=== PATIENT | male | born 1975 | race Caucasian/White ===

== ENCOUNTER → 2019-07-03 08:35 | Outpatient (CLI) | payer OTHER, SELFPAY ==
--- NOTE | ~2019-07-03 | MR_ITS ---
EXAMINATION: MR brain/brain stem wo/w con DATE: 07/03/2019 09:28 INDICATION: Headache. TECHNIQUE: Magnetic resonance imaging (MRI) of the brain and brainstem was performed without and with 19 mm MultiHance intravenous contrast. Sequences included sagittal and axial T1-weighted FSE, axial diffusion-weighted FS EPI, axial T2*-weighted GRE, axial T2-weighted FLAIR Propeller, and axial T2-we ighted Propeller. Postcontrast sequences included axial and coronal T1-weighted FSE. Apparent diffusi on coefficient (ADC) maps were created. COMPARISON: None. FINDINGS: There is no intracranial hemorrhage, acute infarction, or abnormal intracranial mass lesion . The ventricles are normal in size. The paranasal sinuses are clear. The orbits are normal. The mast oid air cells are normal. IMPRESSION: 1. Normal brain. Reviewed, dictated and finalized at location [facility]. ANCE TECHNICIAN IMPRESSION: 1. Normal brain.
[2019-07-03 09:05] LABS: Blood Urea Nitrogen 17 mg/dL (8-26); Estimated Glomerular Filt Rate > 60
== END ==
PROVIDERS: Visit Provider Internal Medicine
DX: R51 Headache (principal)
CPT/HCPCS: 70553; A9577

== ENCOUNTER 2019-12-08 19:40 | Emergency (ER) | payer OTHER, SELFPAY ==
[2019-12-08 19:48] VITALS: BP 128/86; PULSE 100; RESP 16; TEMP 36.7; O2SAT 99
[2019-12-08] MEDS: TETANUS,DIPHTHERIA,AC PERTUSSIS ADULT (0.5 ML) BOOSTRIX IM (19:49)
--- NOTE | 2019-12-08 19:53 | ED.SKABFB ---
HPI - Skin/Abscess/Foreign Bdy General Chief complaint: Wound/Laceration Stated complaint: injury right ankle Time Seen by Provider: 12/08/19 19:47 Source: patient and RN notes reviewed Mode of arrival: ambulatory Limitations: no limitations History of Present Illness HPI narrative: Patient presents today complaining of puncture wound to the right lower calf. He was using this sharp pick at home to scrape grease and punctured his leg. He is not up-to-date on his tetanus vaccine. He has been taking Advil with full relief. Currently pain free. MD complaint: laceration Related Data Allergies Allergy/AdvReac Type Severity Reaction Status Date / Time No Known Allergies Allergy Verified 12/08/19 19:48 Review of Systems Review of Systems: Narrative: CONSTITUTIONAL: Denies body aches, fever, chills, or sweats. EYES: Denies visual changes, redness, or discharge. ENT: Denies rhinorrhea, congestion, sore throat, or otalgia. CARDIOVASCULAR: Denies chest pain, palpitations, or edema. RESPIRATORY: Denies cough or dyspnea. GASTROINTESTINAL: Denies abdominal pain, nausea, vomiting, or diarrhea. GENITOURINARY: Denies dysuria or hematuria. SKIN: Denies rash, itching. + Puncture wound right lower leg MUSCULOSKELETAL: Denies back pain, joint pain, or myalgia. NEUROLOGIC: Denies headache, numbness, tingling, or weakness. PSYCH: Denies depression or anxiety. [facility], [facility] Past Medical History Medical History (Updated 12/08/19 @ 19:58 by Audrey Stephens, [facility], ) Broken wrist Left. Broken knuckle Collapsed lung GERD (gastroesophageal reflux disease) Migraine headache Family History Family History (Updated 06/19/19 @ 15:23 by Mayela Gonzalez CMA) Father Hypertension Family history of diabetes mellitus in first degree relative Mother Hypertension High cholesterol Aneurysm Sibling High cholesterol COPD (chronic obstructive pulmonary disease) Social History Social History (Updated 06/19/19 @ 15:23 by Mayela Gonzalez CMA) Smoking status: Never smoker Alcohol intake: current Gender identity (if verbalized by the patient): Male Comments At time of signature, I have reviewed and agree with nursing past medical, surgical, social and family history unless otherwise noted. Please see nursing chart for further information. There is no relevant family history pertinent to the presenting complaint Exam Narrative: Exam Narrative: GENERAL: Well-appearing, well-nourished, and in no acute distress. HEAD: Normocephalic, atraumatic. EYES: EOMI. No redness or drainage. Conjunctivae normal. ENT: Mucous membranes pink and moist. NECK: Normal AROM. CHEST: No respiratory distress. EXTREMITIES: Right lower le x 4 centimeter area of mild erythema and edema to the posterior lower leg with puncture wound in the center. Tender to palpation. No fluctuance or induration. No red streaking noted. Distal sensation intact. Capillary refill normal. Full range of motion of the ankle. No drainage noted. SKIN: Warm, dry, no rash. Capillary refill normal. Normal skin turgor. NEURO: No focal deficits. Alert and oriented x3. Gait steady. PSYCH: Normal affect. No signs of depression or anxiety. Course Vital Signs Vital signs: Vital Signs Temperature 98.0 F 12/08/19 19:48 Pulse Rate 100 12/08/19 19:48 Respiratory Rate 16 12/08/19 19:48 Blood Pressure 128/86 12/08/19 19:48 Pulse Oximetry 99 12/08/19 19:48 Temperature 98.0 F 12/08/19 19:48 Pulse Rate 100 12/08/19 19:48 Respiratory Rate 16 12/08/19 19:48 Blood Pressure 128/86 12/08/19 19:48 Pulse Oximetry 99 12/08/19 19:48 Reviewed. Pt has been instructed to follow up with his PCP regarding his elevated blood pressure today. MDM - Skin/Abscess/Foreign Bdy Differential Diagnosis Differential diagnosis: Likely abscess of skin or subcutaneous tissue, cellulitis and other (Laceration, skin avulsion) Critical Care Time Critical Care Time
== END 2019-12-08 20:09 | disposition home or self-care (01) ==
PROVIDERS: Emergency Provider Nurse Practitioner; PCP Internal Medicine
DX: L03.115 Cellulitis of right lower limb (principal); S81.831A Puncture wound without foreign body, right lower leg, initial encounter; W26.8XXA Contact with other sharp object(s), not elsewhere classified, initial encounter; Z23 Encounter for immunization; K21.9 Gastro-esophageal reflux disease without esophagitis
CPT/HCPCS: 90471; 90715; 99213; G0463

== ENCOUNTER 2020-10-14 17:32 | Emergency (ER) | payer OTHER, SELFPAY ==
--- NOTE | ~2020-10-14 | XR_ITS ---
[id number]_CR DATE: 10/14/2020 18:13 INDICATION: Left rib pain TECHNIQUE: PA chest, 3 views of left ribs. COMPARISON: None FINDINGS: Normal heart size. No hilar or mediational enlargement. No pulmonary infiltrate or consol idation, pulmonary vascular congestion or pleural effusion or pneumothorax. Small hiatal hernia. No left rib fracture or bone destruction. IMPRESSION: No active cardiopulmonary disease Hiatal hernia Reviewed, dictated and finalized at [facility]. Reviewed, dictated and finalized at location [facility].
[2020-10-14 17:41] VITALS: BP 124/87; PULSE 95; RESP 20; TEMP 36.3; O2SAT 100
--- NOTE | 2020-10-14 18:17 | ED.GENADULT ---
HPI - General Adult General Chief complaint: Neck Pain/Injury Stated complaint: Lt side pain, neck pain Time Seen by Provider: 10/14/20 18:00 Source: patient and RN notes reviewed Mode of arrival: ambulatory Limitations: no limitations History of Present Illness HPI narrative: 45 year old male presents to express care with complaint s of pain to his left lateral chest region and to his left neck which started today. He states he was lifting an old 12 foot wooden ladder and he was putting it up onto the side of house so he could clean the gutters and he felt a sharp pain to his left chest with pain radiating to his neck. Patient states that he has problems lately with his right shoulder and lower back and he was trying to lift the ladder with his left arm. Patient states that the pain is sharp and fleeting like a spasm and then it lets up, increased pain with certain movements, denies any shortness of breath,denies pain with deep breathing. Patient denies any numbness or tingling to his arms with no weakness or decreased in mobility of his arms, has full mobility of neck. MD complaint: left chest wall pain radiating to left side of neck Onset (ago): hour(s) Location: chest (left chest) Radiation: neck Severity: moderate Severity scale (1-10): 5 Quality: stabbing and sharp Pain Consistency: colicky Relieving factors: rest Exacerbating factors: movement and other (laughing or coughing) Associated symptoms: denies other symptoms Treatments prior to arrival: none Related Data Allergies Allergy/AdvReac Type Severity Reaction Status Date / Time No Known Allergies Allergy Verified 10/14/20 17:37 Review of Systems Review of Systems: Narrative: CONSTITUTIONAL: Denies fever, chills, or sweats. EYES: Denies visual changes, redness, or discharge. ENT: Denies rhinorrhea, congestion, sore throat, or otalgia. CARDIOVASCULAR: positive for left lateral chest pain,no palpitations, or edema. RESPIRATORY: Denies cough or dyspnea. GASTROINTESTINAL: Denies abdominal pain, nausea, vomiting, or diarrhea. GENITOURINARY: Denies dysuria or hematuria. SKIN: Denies rash or itching. MUSCULOSKELETAL: Denies back pain, joint pain, some pain radiates to his left neck NEUROLOGIC: Denies headache, numbness, or weakness. PSYCHIATRIC: Denies anxiety or depression. All systems reviewed & are unremarkable except as noted in HPI and below PMFSH Past Medical History Medical History (Updated 10/14/20 @ 19:07 by Harriet Benoit NP) Broken wrist Left. Broken knuckle Collapsed lung GERD (gastroesophageal reflux disease) Migraine headache Surgical History Surgical History (Updated 10/14/20 @ 18:22 by Harriet Benoit NP) History of hand surgery ORIF right hand Family History Family History (Updated 06/19/19 @ 15:23 by Mayela Bee CMA) Father Hypertension Family history of diabetes mellitus in first degree relative Mother Hypertension High cholesterol Aneurysm Sibling High cholesterol COPD (chronic obstructive pulmonary disease) Social History Social History (Updated 10/14/20 @ 19:01 by Harriet Benoit NP) Smoking status: Never smoker Alcohol intake: current Substance use: never Living arrangements: with family Gender identity (if verbalized by the patient): Male Comments At time of signature, agree with nursing past medical, surgical, social and family history. There is no relevant family history pertinent to the presenting complaint Exam Narrative: Exam Narrative: GENERAL: Well-appearing, well-nourished, and in no acute distress. HEAD: Normocephalic, atraumatic. EYES: PERRLA and EOMI. ENT: Nares clear, no rhinorrhea or epistaxis. Mucous membranes moist. NECK: Supple.no lymphadenopathy some radiation of pain into left side of neck when he has sharp pains to left lateral chest CHEST: Clear to auscultation. No respiratory distress.SAO2 100% on room air. sharp stabbing pains to the left lateral chest with fleetin
== END 2020-10-14 18:37 | disposition home or self-care (01) ==
PROVIDERS: Emergency Provider Registered Nurse; PCP Internal Medicine
DX: M54.2 Cervicalgia (principal); S29.011A Strain of muscle and tendon of front wall of thorax, initial encounter; X50.0XXA Overexertion from strenuous movement or load, initial encounter; K21.9 Gastro-esophageal reflux disease without esophagitis
CPT/HCPCS: 71101; 99213; G0463

== ENCOUNTER 2023-08-16 06:58 | Day surgery (SDC) | payer OTHER, SELFPAY ==
[2023-07-16 15:15] VITALS: BMI 27.9
[2023-07-25 13:29] VITALS: BMI 27.8
[2023-08-16 07:25] VITALS: BP 126/99; PULSE 97; RESP 14; TEMP 36.5; O2SAT 98
--- NOTE | 2023-08-16 07:32 | WPDANESEPPF ---
Anes - Initial Pre Proc Eval Procedure: Operation Date: 08/16/23 08:30 Proposed Procedures p Screening Colonoscopy - Shawn Stevens MD Date/Time: 08/16/23 07:32 Surgeon: Shawn Stevens MD Pre Op Diagnosis: Neoplasm Screening Patient Data Age: 48 Gender: M Height: 1.83 m Weight: 90.8 kg Last Vital Signs Temp 36.5 C 08/16/23 07:25 Pulse 97 08/16/23 07:25 Resp 14 08/16/23 07:25 BP 126/99 H 08/16/23 07:25 Pulse Ox 98 08/16/23 07:25 O2 Del Method Room Air 08/16/23 07:25 Allergies Allergy/AdvReac Type Severity Reaction Status Date / Time No Known Allergies Allergy Verified 08/16/23 07:28 Home Medications Medication Instructions Recorded Confirmed Type diazepam 5 mg tablet 5 mg PO BID PRN Vertigo 07/25/23 08/16/23 History lisinopril 10 mg tablet 10 mg PO HS #90 tabs 08/14/23 08/16/23 Rx Patient hx anesthesia problems: none Family hx anesthesia problems: none Results Review: All pre-operative results and documents have been reviewed as part of the pre-operative evaluation. [facility] Past Medical History Medical History Broken wrist Left. Broken knuckle Collapsed lung GERD (gastroesophageal reflux disease) Migraine headache Surgical History Surgical History History of hand surgery ORIF right hand Family History Family History Father Hypertension Family history of diabetes mellitus in first degree relative Mother Hypertension High cholesterol Aneurysm Sibling High cholesterol COPD (chronic obstructive pulmonary disease) Social History Social History Smoking status: Never smoker Alcohol intake: current Drinks per week: 0 Alcohol use details: PT STATES 2 DRINKS PER MONTH Substance use: current Substance use type: marijuana Other substance usage details: OCCASIONAL GUMMY FOR PAIN Last use: 06/14/23 Do You Feel Safe in your Home?: Yes Lack of Transportation: No Lack of Food: Never True Current Housing: I Have Housing Concerned About Future Housing: No Difficulty Paying Gas/Electric Bills: No Difficulty Paying for Meds: No Currently Unemployed: No Education: High School Diploma/GED Difficulty w/ Childcare or Family Care: No Living arrangements: with family Gender identity (if verbalized by the patient): Male Spiritual care concerns: No Anes - Eval Final PreProcedure Day of Procedure 08/16/23 07:32 Patient weight: overweight Heart: regular rate and rhythm Lungs: clear to auscultation Airway: Mallampati scale class II Neurological: alert and oriented Last oral intake: >/= 8 hours ASA classification: II Emergent: no Anesthetic plan: proceed Anesthesia type and monitoring: general GIVS and standard monitoring Results Review: All pre-operative results and documents have been reviewed as part of the pre-operative evaluation. Informed Consent: The patient's anesthetic plan and its attendant risks and benefits were discussed with the patient/family/POA. Questions were solicited and answers provided to the satisfaction of the patient/family/POA.
[2023-08-16] MEDS: LACTATED RINGERS 1,000 ML 150 ML IV CONT (07:39)
--- NOTE | 2023-08-16 08:03 | PM.HPGS ---
History of Present Illness History of Present Illness Consent: Risks, benefits, and alternatives have been discussed and questions answered. Patient agrees to proceed with procedure. Chief complaint: Neoplasm Screening Narrative: Arun Cooley is a 48 year old male presents for screening colonoscopy. Patient's current weight appetite and bowel movements are normal. Patient denies abdominal pain. He has had bleeding. His family history is noncontributory. Review of Systems Review of Systems: All systems reviewed & are unremarkable except as noted in HPI and below PMFSH Past Medical History Medical History Broken wrist Left. Broken knuckle Collapsed lung GERD (gastroesophageal reflux disease) Migraine headache Surgical History Surgical History History of hand surgery ORIF right hand Family History Family History Father Hypertension Family history of diabetes mellitus in first degree relative Mother Hypertension High cholesterol Aneurysm Sibling High cholesterol COPD (chronic obstructive pulmonary disease) Social History Social History Smoking status: Never smoker Alcohol intake: current Drinks per week: 0 Alcohol use details: PT STATES 2 DRINKS PER MONTH Substance use: current Substance use type: marijuana Other substance usage details: OCCASIONAL GUMMY FOR PAIN Last use: 06/14/23 Do You Feel Safe in your Home?: Yes Lack of Transportation: No Lack of Food: Never True Current Housing: I Have Housing Concerned About Future Housing: No Difficulty Paying Gas/Electric Bills: No Difficulty Paying for Meds: No Currently Unemployed: No Education: High School Diploma/GED Difficulty w/ Childcare or Family Care: No Living arrangements: with family Gender identity (if verbalized by the patient): Male Spiritual care concerns: No Meds Home Medications and Allergies Home Medications Medication Instructions Recorded Confirmed Type diazepam 5 mg tablet 5 mg PO BID PRN Vertigo 07/25/23 08/16/23 History lisinopril 10 mg tablet 10 mg PO HS #90 tabs 08/14/23 08/16/23 Rx Allergies Allergy/AdvReac Type Severity Reaction Status Date / Time No Known Allergies Allergy Verified 08/16/23 07:28 Vital Signs Vital Signs - 24 hr 08/16/23 07:25 Temperature 97.7 F Pulse Rate 97 Respiratory Rate 14 Blood Pressure 126/99 H Pulse Oximetry 98 Oxygen Delivery Room Air Exam Narrative: Physical exam reveals patient to be alert. Vital signs stable. HEENT exam is unremarkable. Patient is anicteric. Lungs are clear to auscultation and percussion. Heart is without murmur extra sounds. Abdomen bowel sounds are present soft nontender with no organomegaly. Digital external rectal exam is normal. Assessment and Plan Assessment and plan (1) Screening for colon cancer: Code(s): Z12.11 - Encounter for screening for malignant neoplasm of colon Status: Acute Assessment and Plan: Patient presents for screening colonoscopy. He appears to be at average risk for colon polyps. Further recommendations may be given after endoscopy
[2023-08-16 08:28] VITALS: BP 96/72; PULSE 84; RESP 16; O2SAT 99
[2023-08-16 08:38] VITALS: BP 103/72; PULSE 83; RESP 16; O2SAT 100
--- NOTE | 2023-08-16 08:42 | WPDANESPN ---
Anes - Prog Note Post-Op Date/Time: 08/16/23 08:42 Cardiovascular status: normal Respiratory status: normal Airway patency: baseline Mental status: baseline Post-Op hydration status: normal Vital Signs: Last Vital Signs Temp 36.5 C 08/16/23 07:25 Pulse 97 08/16/23 07:25 Resp 14 08/16/23 07:25 BP 126/99 H 08/16/23 07:25 Pulse Ox 98 08/16/23 07:25 O2 Del Method Room Air 08/16/23 07:25 Pain Score (VAS): 0 I/O: Intake & Output 08/15/23 08/16/23 08/16/23 23:59 07:59 15:59 Intake Total 400 Balance 400 Patient Feedback: Patient satisfied with anesthetic care.
== END 2023-08-16 09:00 | disposition home or self-care (01) ==
PROVIDERS: PCP Internal Medicine; Visit Provider Internal Medicine Gastroenterology
PROC: 0DJD8ZZ Inspection of Lower Intestinal Tract, Via Natural or Artificial Opening Endoscopic (ICD-10-PCS; CPT 45378; principal; 2023-08-16 08:30)
DX: Z12.11 Encounter for screening for malignant neoplasm of colon (principal); D12.8 Benign neoplasm of rectum
CPT/HCPCS: 45385

== ENCOUNTER 2023-08-16 09:09 | Outpatient (NON) | payer OTHER, SELFPAY | END 2023-08-16 09:10 | disposition home or self-care (01) | PROVIDERS: PCP Internal Medicine; Visit Provider Internal Medicine Gastroenterology | DX: Z12.11 Encounter for screening for malignant neoplasm of colon (principal) | CPT/HCPCS: 88305 ==

== ENCOUNTER 2024-03-08 17:15 | Emergency (ER) | payer OTHER, SELFPAY ==
--- NOTE | 2024-03-08 17:19 | ED.GENADULT ---
HPI - General Adult General Chief complaint: Upper Respiratory Infection Stated complaint: sore throat / cough Time Seen by Provider: 03/08/24 17:19 Source: patient Mode of arrival: ambulatory Limitations: no limitations History of Present Illness HPI narrative: 48-year-old male patient presents to [facility] with complaints of sore throat that started about 2 days ago along with a headache, nasal congestion, runny nose, cough. Denies any fevers, body aches or chills. Denies any abdominal pain, nausea, vomiting or diarrhea. Patient states he has just been taking [id number] Robitussin for his symptoms. Denies any chest pain or shortness of breath. Related Data Allergies Allergy/AdvReac Type Severity Reaction Status Date / Time No Known Allergies Allergy Verified 03/08/24 17:24 Review of Systems Review of Systems: CONSTITUTIONAL: Denies fever, chills, or sweats. EYES: Denies visual changes, redness, or discharge. ENT: Positive rhinorrhea, congestion, sore throat, denies otalgia. CARDIOVASCULAR: Denies chest pain, palpitations, or edema. RESPIRATORY: positive cough denies dyspnea. GASTROINTESTINAL: Denies abdominal pain, nausea, vomiting, or diarrhea. GENITOURINARY: Denies dysuria or hematuria. SKIN: Denies rash or itching. MUSCULOSKELETAL: Denies back pain, joint pain, or myalgia. NEUROLOGIC: positive headache, denies numbness, or weakness. PSYCHIATRIC: Denies anxiety or depression. [facility] Past Medical History Medical History (Updated 03/08/24 @ 17:58 by ADRIA Roque) Benign positional vertigo Broken wrist Left. Broken knuckle Collapsed lung Essential hypertension GERD (gastroesophageal reflux disease) Hx of hyperlipidemia Migraine headache Surgical History Surgical History History of hand surgery ORIF right hand Family History Family History Father Hypertension Family history of diabetes mellitus in first degree relative Mother Hypertension High cholesterol Aneurysm Sibling High cholesterol COPD (chronic obstructive pulmonary disease) Social History Social History Smoking status: Never smoker Alcohol intake: current Drinks per week: 0 Alcohol use details: PT STATES 2 DRINKS PER MONTH Substance use: current Substance use type: marijuana Other substance usage details: OCCASIONAL GUMMY FOR PAIN Last use: 06/14/23 Do You Feel Safe in your Home?: Yes Lack of Transportation: No Lack of Food: Never True Current Housing: I Have Housing Concerned About Future Housing: No Difficulty Paying Gas/Electric Bills: No Difficulty Paying for Meds: No Currently Unemployed: No Education: High School Diploma/GED Difficulty w/ Childcare or Family Care: No Living arrangements: with family Gender identity (if verbalized by the patient): Male Spiritual care concerns: No Comments At the time of my signature I agree with nursing past medical history, surgical, social, and family history. There is no relevant family history pertinent to the presenting complaint. Exam Narrative: GENERAL: Well-appearing, well-nourished, and in no acute distress. HEAD: Normocephalic, atraumatic. EYES: PERRLA and EOMI. ENT: Nares with erythema edema noted bilaterally, clear rhinorrhea or epistaxis. Mucous membranes moist. posterior pharynx with postnasal drip present slight erythema no tonsillar enlargement, no exudates or lesions present. Bilateral TMs are clear with no erythema or foreign bodies the canal. NECK: Supple. No lymphadenopathy CHEST: Clear to auscultation. No respiratory distress. Patient able talk in clear complete sentences. No tripoding noted. HEART: Regular rate and rhythm. No murmur heard. Normal peripheral pulses. ABDOMEN: Soft, nontender, nondistended, normal active bowel sounds. EXTREMITIES: Normal range of motion. No edema. SKIN: Warm, dry, no rash. NEURO: No focal deficits. Alert and oriented x3. Course Course Level of Care: Express Care Visit Vital Signs Vital signs: Vital Signs Temperature 36.4 C 03/08/24 17:23 Pulse Rate 100 03/08/24 17:23 Respiratory Rate 18 03/08/24 17:23 Blood Pressure 135/82 03/08/24 17:23 Pulse Oximetry 100 03/08/24 17:23 Oxygen Delivery Room Air 03/08/24 17:23 Temperature 36.4 C 03/08/24 17:25 Pulse Rate 100 03/08/24 17:25 Respiratory Rate 18 03/08/24 17:25 Blood Pressure 135/82 03/08/24 17:25 Pulse Oximetry 100 03/08/24 17:25 Oxygen Delivery Room Air 03/08/24 17:25 vital signs reviewed. Medical Decision Making MDM Narrative Medical decision making narrative: Plan care patient is to swab him today for influenza, COVID and strep. I will reassess him once this has resulted. Differential Diagnosis Differential Diagnosis: Differential diagnosis: Allergic rhinitis, chronic sinusitis, tonsillitis, acute sinusitis, infectious mononucleosis, seasonal influenza, pertussis, diphtheria, meningococcal disease, viral syndrome, viral bronchitis, RSV, COVID-19 Vital Signs Vital Signs: Vital Signs Temperature 36.4 C 03/08/24 17:23 Pulse Rate 100 03/08/24 17:23 Respiratory Rate 18 03/08/24 17:23 Blood Pressure 135/82 03/08/24 17:23 Pulse Oximetry 100 03/08/24 17:23 Oxygen Delivery Room Air 03/08/24 17:23 Temperature 36.4 C 03/08/24 17:25 Pulse Rate 100 03/08/24 17:25 Respiratory Rate 18 03/08/24 17:25 Blood Pressure 135/82 03/08/24 17:25 Pulse Oximetry 100 03/08/24 17:25 Oxygen Delivery Room Air 03/08/24 17:25 Lab Data Labs: Lab Results 03/08/24 Range/Units 17:52 POC Grp A Strep Screen Negative (Negative) Critical Care Time Critical Care Time Critical Care Time: No Discharge Plan Discharge Clinical Impression: Viral URI with cough Patient Disposition: Home, Self-Care Condition: Stable Instructions: Antibiotic Form, Viral Syndrome (ED) Additional Instructions: Viral illness may last between 7-12days; antibiotic is NOT recommended at this time. Recommend antihistamine such as Benadryl at night time and Claritin/Zyrtec/Elva during the day Cough syrup may cause drowsiness; avoid driving or take it at night time. Also, recommend symptomatic treatment includes: rest, fluids, and increase humidity of the air at home. Recommend Acetaminophen or nonsteroidal anti-inflammatory agents (NSAIDs) as directed in the bottle to reduce fever and/pain/headache. Avoid smoking/second-hand smoke. Limit visits to areas with large crowds. Please schedule a follow-up visit with your personal physician for further evaluation and treatment within 3-5days. Including recheck and discussion of your blood pressure. If your symptoms persist, change or worsen significantly before you can contact your personal physician then please, without delay, go to the emergency department for further evaluation. Prescriptions: No Action lisinopril 10 mg tablet 10 mg PO HS Qty: 90 0RF Rx Instructions: NEEDS APPOINTMENT FOR FURTHER REFILLS Follow-up/Referrals: Gage Proctor, [Primary Care Provider] - Time of Disposition: 17:58
[2024-03-08 17:23] VITALS: BP 135/82; PULSE 100; RESP 18; TEMP 36.4; O2SAT 100
[2024-03-08 17:25] VITALS: BP 135/82; PULSE 100; RESP 18; TEMP 36.4; O2SAT 100
[2024-03-08 17:54] LABS: EDSTREPNEGPOS1 Negative (Negative)
[2024-03-08 18:02] LABS: EDCOVIDSCREEN Negative (Negative); EDINFLUASCREEN Negative (Negative); EDINFLUBSCREEN Negative (Negative)
== END 2024-03-08 18:03 | disposition home or self-care (01) ==
PROVIDERS: Emergency Provider Nurse Practitioner Family; PCP Internal Medicine
DX: J06.9 Acute upper respiratory infection, unspecified (principal); R05.9 Cough, unspecified; Z20.822 Contact with and (suspected) exposure to COVID-19; I10 Essential (primary) hypertension; K21.9 Gastro-esophageal reflux disease without esophagitis; E78.5 Hyperlipidemia, unspecified
CPT/HCPCS: 87081; 87426; 87804; 87880; 99213; G0463